=== PATIENT | female | born 1990 | race Caucasian/White ===

== ENCOUNTER 2025-01-15 03:54 | Emergency (ER) | payer OTHER ==
[~2025-01-15] VITALS: Ht 157.5 cm; Wt 93.2 kg
[2025-01-15 04:02] VITALS: TEMP 98.1
[2025-01-15 04:25] LABS: APPEARANCE,URINE CLEAR (CLEAR); BILIRUBIN,URINE NEGATIVE (NEGATIVE); COLOR,URINE LIGHT YELLOW (YELLOW); GLUCOSE, URINE (UA) NEGATIVE (NEGATIVE); KETONES,URINE NEGATIVE (NEGATIVE); LEUKOCYTE ESTERASE ,URINE TRACE (NEGATIVE); NITRATE,URINE NEGATIVE (NEGATIVE); OCCULT BLOOD,URINE SMALL (NEGATIVE); PROTEIN,URINE NEGATIVE (NEGATIVE); UROBILINOGEN,URINE <=1.0 mg/dL (<=1.0)
[2025-01-15 04:41] LABS: BACTERIA,URINE Few /HPF (None Seen); RBC,URINE 0-2 /HPF (0-2); SQUAMOUS EPITHELIAL CELL,UR Few /LPF (None Seen)
[2025-01-15] MEDS: PHENAZOPYRIDINE HCL 100 MG TABLET PO ONE (04:45)
[2025-01-15] MEDS: ACETAMINOPHEN 500 MG TABLET PO ONE ×2 (04:46→05:34)
[2025-01-15] MEDS: ONDANSETRON 4 MG TABLET PO ONE (04:46)
[2025-01-15] MEDS ORDERED: MAG30ORA11 PO (05:13)
[2025-01-15] MEDS ORDERED: CEPH-558 PO (05:13)
[2025-01-15] MEDS ORDERED: PHEN-674 PO (05:13)
[2025-01-15] MEDS ORDERED: ACET-66 PO (05:13)
[2025-01-15] MEDS ORDERED: ONDA-104 PO (05:13)
[2025-01-15] MEDS ORDERED: OMEP-148 PO (05:13)
[2025-01-15 05:35] VITALS: BP 125/69; PULSE 80; RESP 16; O2SAT 98
== END 2025-01-15 05:35 | disposition home or self-care (01) ==
LOC: EMS 04:05
DX: N39.0 Urinary tract infection, site not specified (principal); Z79.899 Other long term (current) drug therapy
CPT/HCPCS: 99284; 81001; 84703; Q0162